=== PATIENT | male | born 1970 | race Caucasian/White ===

== ENCOUNTER 2018-10-10 14:25 | Outpatient (CLI) | payer OTHER | END 2018-10-10 14:44 | disposition home or self-care (01) | LOC: LAB 14:25 | DX: E78.4 Other hyperlipidemia (principal); Z00.00 Encounter for general adult medical examination without abnormal findings; R42 Dizziness and giddiness ==

== ENCOUNTER 2019-01-02 07:09 | Outpatient (CLI) | payer OTHER | END 2019-01-02 07:17 | disposition home or self-care (01) | LOC: MRI 07:09 | DX: S83.211A Bucket-handle tear of medial meniscus, current injury, right knee, initial encounter (principal) | CPT/HCPCS: 73721 ==

== ENCOUNTER → 2019-03-17 | Outpatient (CLI) | payer OTHER | END | disposition home or self-care (01) | LOC: RAD 14:42 | DX: M25.551 Pain in right hip (principal); M54.89 Other dorsalgia ==

== ENCOUNTER → 2020-01-12 13:57 | Outpatient (CLI) | payer OTHER | END | disposition home or self-care (01) | LOC: LAB 13:57 → RAD 13:57 | DX: S60.222A Contusion of left hand, initial encounter (principal); M25.532 Pain in left wrist ==

== ENCOUNTER → 2020-01-14 13:53 | Outpatient (CLI) | payer OTHER | END | disposition home or self-care (01) | LOC: LAB 13:53 → RAD 13:53 | DX: M54.5 Low back pain (principal) ==